=== PATIENT | female | born 1955 | race Caucasian/White ===

== ENCOUNTER → 2017-01-25 | Outpatient (CLI) | payer BC | END | disposition home or self-care (01) | LOC: CFH 13:02 | PROVIDERS: ATTEND Nurse Practitioner Family | DX: Z12.31 Encounter for screening mammogram for malignant neoplasm of breast (principal) | CPT/HCPCS: 77063; G0202 ==

== ENCOUNTER 2017-12-11 19:42 | Emergency (ER) | payer BC ==
[~2017-12-11] VITALS: Ht 157.5 cm; Wt 54.0 kg
[2017-12-11 19:45] VITALS: BP 125/79
== END 2017-12-11 20:59 | disposition home or self-care (01) ==
LOC: ED 20:53
DX: S62.615A Displaced fracture of proximal phalanx of left ring finger, initial encounter for closed fracture (principal); W50.2XXA Accidental twist by another person, initial encounter; Y93.89 Activity, other specified; Y92.89 Other specified places as the place of occurrence of the external cause; Y99.8 Other external cause status; Y92.009 Unspecified place in unspecified non-institutional (private) residence as the place of occurrence of the external cause
CPT/HCPCS: 29130; 99284

== ENCOUNTER → 2017-12-26 | Outpatient (CLI) | payer BC ==
[~2017-12-26] MED LIST: ASCO10004 PO; CHOL10003 PO; GLUC1TAB91 PO; KRIL1CAP18 PO; LEVO50TA5 PO; UBID100C24 PO
== END | disposition home or self-care (01) ==
LOC: STAR 15:05
PROVIDERS: ATTEND Orthopaedic Surgery
DX: Z01.818 Encounter for other preprocedural examination (principal); S62.615A Displaced fracture of proximal phalanx of left ring finger, initial encounter for closed fracture; X58.XXXA Exposure to other specified factors, initial encounter; Y93.89 Activity, other specified; Y92.89 Other specified places as the place of occurrence of the external cause; Y99.8 Other external cause status
CPT/HCPCS: 93005

== ENCOUNTER 2017-12-30 15:12 | Day surgery (SDC) | payer BC ==
[2017-12-26 15:45] VITALS: BP 113/78
[~2017-12-30] VITALS: Ht 157.5 cm; Wt 53.0 kg
[~2017-12-30 15:12] MED LIST changes: +LACTATED RINGERS 1,000 ML IV SCH
[2017-12-30] MEDS ORDERED: BUPIVACAINE/PF-EPI 0.5% 1:200K ONE (16:41)
[2017-12-30] MEDS ORDERED: SUCCINYLCHOLINE 20 MG/ML, 10ML ONE (17:09)
[2017-12-30] MEDS ORDERED: ROCURONIUM 10 MG/ML,10ML ONE (17:09)
[2017-12-30] MEDS ORDERED: PROPOFOL 10 MG/ML, 20ML ONE (17:09)
[2017-12-30] MEDS ORDERED: BUPIVACAINE/PF 0.5% ONE (17:09)
[2017-12-30] MEDS ORDERED: DEXAMETHASONE 4 MG/ML, 1ML ONE (17:09)
[2017-12-30] MEDS ORDERED: CEFAZOLIN 1,000 MG ONE (17:09)
[2017-12-30] MEDS ORDERED: MIDAZOLAM 1 MG/ML, 2ML ONE (17:15)
[2017-12-30] MEDS ORDERED: OXYcodone 5 MG/5 ML ORAL.SOL UDC PO PRN (17:30)
[2017-12-30] MEDS ORDERED: METOCLOPRAMIDE 5 MG/ML, 2ML IV PRN (17:30)
[2017-12-30] MEDS ORDERED: LABETALOL 5MG/ML, 20ML IV PRN (17:30)
[2017-12-30] MEDS ORDERED: hydrALAzine 20 MG/ML, 1ML IV PRN (17:30)
[2017-12-30] MEDS ORDERED: MEPERIDINE/PF 25MG/0.5ML IVPush PRN (17:30)
[2017-12-30] MEDS ORDERED: HYDROmorphone 1 MG/ML, 1ML IV PRN (17:30)
[2017-12-30] MEDS ORDERED: PROMETHAZINE 25 MG/ML, 1ML IV PRN (17:30)
[2017-12-30] MEDS ORDERED: FENTANYL PF 100 MCG/2ML IV PRN (17:30)
[2017-12-30] MEDS ORDERED: ALBUTEROL SULFATE 2.5 MG/3 ML NPPB PRN (17:30)
[2017-12-30] MEDS ORDERED: ONDANSETRON 2MG/ML, 2ML IVPush PRN (17:30)
[2017-12-30] MEDS ORDERED: KETOROLAC 30 MG/1 ML IV PRN (17:30)
[2017-12-30] MEDS ORDERED: HYDROcodone/APAP 5/325 TABLET PO PRN (19:30)
[2017-12-30] MEDS ORDERED: ONDANSETRON 2MG/ML, 2ML IV PRN (19:30)
[2017-12-30] MEDS ORDERED: LACTATED RINGERS 1,000 ML IV SCH (19:30)
== END 2017-12-30 21:50 | disposition home or self-care (01) ==
LOC: OR 15:12 → 4NOR 19:14 → OR 21:50
PROVIDERS: ATTEND Orthopaedic Surgery
DX: S62.615A Displaced fracture of proximal phalanx of left ring finger, initial encounter for closed fracture (principal); X58.XXXA Exposure to other specified factors, initial encounter; Y93.89 Activity, other specified; Y92.89 Other specified places as the place of occurrence of the external cause; Y99.8 Other external cause status; E03.9 Hypothyroidism, unspecified; Z88.8 Allergy status to other drugs, medicaments and biological substances; Z72.89 Other problems related to lifestyle
CPT/HCPCS: 26735; 73140; 76000; C1713; J0330; J0690; J1100; J2250; J2704; J3490; J7120; G0378